=== PATIENT | male | born 1945 | race Caucasian/White ===

== ENCOUNTER 2020-02-23 05:22 | Outpatient (RCR) | payer MEDICARE, OTHER, SELFPAY ==
--- NOTE | 2020-02-09 16:20 | N.ONRAD NP_ITS ---
Radiation Oncology Consult Patient: Rusty Adams MR#: [id number] : 1945> Attending Physician: Dr. Jonathon Carrillo Date of Service: 02/09/2020 Rusty Adams was seen in consultation this afternoon for evaluation regarding potential salvage radiotherapy for the management of his recurrent prostate cancer. He initially presented with an elevated PSA level of 4.9 ng/mL in September 2016. A TRUS biopsy was performed by Rohit Lyman M.D. on May 17, 2017. Pathology identified an adenocarcinoma of the prostate with a Alejandro score of 4+5=9 involving 1 submitted biopsy core. A robotic assisted radical retropubic prostatectomy with pelvic lymph node sampling was completed on 2017. Pathology diagnosed a 58g prostate harboring an acinar adenocarcinoma with a [place] pattern of 4+3=7 involving 10% of the prostate gland. Perineural invasion was present. Surgical margins were uninvolved by invasive carcinoma. A total of 6 lymph nodes were harvested without metastatic disease. His PSA was 0.2 ng/mL postoperatively. A recent PSA obtained in December was 0.4 ng/mL. A fluciclovine F 18 (Axumin) scan was ordered on October 20, 2019 did not identify a potential sites of metastatic disease. I have been consulted for salvage radiotherapy. The patient's past medical history is significant atrial fibrillation, hypercholesterolemia, hypertension, obstructive sleep apnea, prostate cancer, and vitamin D deficiency. His previous surgical interventions include colonoscopy, lens replacement (OS), robotic assisted radical retropubic prostatectomy, and TRUS biopsy. I have reviewed the patient's medication profile which is available in the electronic medical record. He denied drug allergies. The patient's family history was unremarkable for genitourinary malignancies. The patient was unaccompanied to this consultation. He described occasional alcohol intake(daily beer) and disavowed a tobacco habit (prior smoking history; quit already 2 years ago). On review of systems, he did not report any constitutional complaints including fevers of unknown origin or unintentional weight loss. He decreased hearing in his left ear, but denied epistaxis, or dysphagia. He denied any cardiopulmonary symptoms such as angina, cough, or palpitations. On gastrointestinal review, he reported constipation but no nausea. Upon genitourinary review he denied dysuria, hematuria and incontinence. He did not report any musculoskeletal complaints including bone pain or muscle weakness. There were no neurological symptoms such as headaches, paresthesias, or seizures. On physical examination, the patient has an ECOG performance status of 0. He was 6 ft tall and weighed 215 lbs. The temperature was 98.4???F. The blood pressure was 127/78 mmHg. The pulse was 87 bpm and the respiratory rate of was 18. The head was normocephalic and atraumatic. Ophthalmoscopy identified bilateral red reflexes with sharp fundi visualized. Otoscopy revealed light reflexes upon tympanic membranes. Rhinoscopy exhibited non-inflamed turbinates. The oral cavity had moist mucous membranes and no oropharyngeal exudate was present. Poor dentition was noted. There was no cervical adenopathy or thyromegaly. Normal fremitus was noted with resonance to percussion elicited. Bronchovesicular breath sounds were auscultated in the posterior lung almaguer. Cardiac sounds were regular in rate and rhythm. A murmur was present. No JVD noted. The abdomen had active bowel sounds. No tenderness to palpation. No evidence of organomegaly.. No muscle weakness upon testing. No tenderness to deep palpation along the axial skeleton. Cranial nerves II through XII were intact. No sensory deficits. Gait was normal. In summary, the patient presented with an elevated PSA level of 4.9 ng/mL in September 2016. A TRUS biopsy was performed by Rohit Lyman M.D. on May 17, 2017. An adenocarcinoma of the prostate with a [place] score of 4+5=9 involving 1 submitted biopsy core was diagnosed. A robotic assisted radical retropubic prostatectomy with pelvic lymph node sampling was completed on July 18, 2017. Pathology diagnosed a 58g prostate harboring an acinar adenocarcinoma with a Alejandro pattern of 4+3=7 involving 10% of the prostate gland. `Perineural invasion was present. Surgical margins were uninvolved by invasive carcinoma. A total of 6 lymph nodes were harvested without metastatic disease. His PSA was 0.2 ng/mL postoperatively. A recent PSA obtained in December was 0.4 ng/mL. A fluciclovine F 18 (Axumin) scan that was ordered on October 20, 2019 did not identify a potential sites of metastatic disease. I have been consulted for salvage radiotherapy. I reviewed the recommendations as per National Comprehensive Cancer Network Guidelines in conjunction with androgen deprivation therapy for salvage radiotherapy. I also discussed the GETUG-AFU 16 that attested improvement in progression free survival to the patients randomized to radiotherapy in conjunction with hormonal suppression. I anticipate a 6 week course of radiotherapy with concurrent gonadotropin releasing hormone agonist pharmacotherapy which will be initiated following CT radiotherapy planning. Toxicities of pelvic radiotherapy were also canvassed. The patient has verbalized understanding would like proceed as recommended. Signed by: Dr. Jonathon Carrillo 02/09/2020 4:19:10 PM
--- NOTE | 2020-02-12 | CT_ITS ---
Radiation Therapy Planning CT images; total exam DLP: 999.15 mGy-cm MTDD
--- NOTE | 2020-02-23 12:20 | ONCRAD TMN_ITS ---
Radiation Oncology Weekly Treatment Management Patient: Angie Ojeda MR#: [id number] : 1945 Attending Physician: Jonathon Carrillo M.D. Date of Service: 02/23/2020 Referring Physician(s): Dr. Jorge Luis Barrett The patient is a 74 year old white male diagnosed with a biochemical failure following a radical prostatectomy in June 2017. His initial pathological stage was IIC (T2cN0 - PSA 4.9 ng/mL with a [place] Score of 4+3=7). His most recent PSA level was 0.4 ng/mL in December. The patient has received 2 Gy of a prescribed 66 Hamm to the prostate fossa with an intensity modulated radiotherapy plan utilizing a step and shoot treatment technique. He is prescribed concurrent hormonal therapy. Upon review of systems, he denied any lower urinary tract symptoms or gastrointestinal complaints related to radiotherapy. On physical examination, the patient weighed 215 lbs. His temperature was 97.2 ???F with a blood pressure of 166/77 mmHg. The pulse was 91 bpm and his respiratory rate was 16. No erythema within the treatment almaguer. Continue salvage prostatic fossa radiotherapy as planned. Signed by: Dr. Jonathon Carrillo 02/23/2020 12:19:31 PM
[2020-02-23] MEDS: lidocaine 1% INJ 20 mL INJECTION (12:35)
[2020-02-23] MEDS: goserelin acetate 10.8 mg Implant IM (12:45)
--- NOTE | 2020-02-23 13:42 | ONC CON_ITS ---
Dr. Liu New Patient Note Patient: Rusty Adams Unit #: [id number]: 1945 Dicatated By: Ozzie Liu M.D.Date of Visit: Feb 23, 2020 Onc MED New Patient/Consult Referring Physician: Dr. Jorge Luis Barrett M.D. Chief Complaint: Prostate cancer. History of Present Illness: This is a 74-year-old man with [place] score 7 (4+3) adenocarcinoma of the prostate, pathologic stage IIC (pT2, pN0) at prostatectomy in June 2017, and now with evidence of biochemical recurrence. He had presented with a rising PSA level. As of April 2017 it had increased to 7.0 ng/mL compared to 4.93 ng/mL in September 2016. His TRUS/prostate biopsy on 05/17/2019 showed prostatic adenocarcinoma with a maximum Alejandro score 7 (4+3) involving 4/12 cores. He then underwent laparoscopic robotic assisted radical prostatectomy with pelvic lymph node dissection on 07/18/2017. Pathology showed Alejandro score 4+3=7 prostatic adenocarcinoma which was confined to the prostate but involved both lobes. It was estimated to involve 10% of the prostate. There was no extraprostatic extension. There is no lymphovascular invasion identified, but there were multiple foci of perineural invasion noted. There was no involvement in 6 pelvic lymph nodes. As of 12/26/2018 his PSA level was detectable at 0.2 ng/mL and by 09/01/2019 and it had increased to 0.3 ng/mL. Staging F-18 Axumin PET imaging on 10/20/2019 was negative with no strong evidence for any Axumin avid tumor activity. As of 01/08/2020 there was further increase in the PSA to 0.4 ng/mL. He had radiation oncology consultation with Dr. Carrillo on 02/09/2020, and he has been recommended to undergo pelvic radiation with concurrent androgen deprivation therapy. He says he feels really good. He has good energy and has normal activity. ECOG score 0. Appetite also is good. His weight is stable. He does not have fever, night sweats, or hot flashes. He has no shortness of breath, cough, or chest pain. He has no GI complaints and reports having no difficulty with his bladder function. He has a little arthritis in his hands. He has no other joint or bone pain. He does not complain of headache or dizziness and he has no focal neurologic symptoms. Past Medical History: His medical history includes prostate cancer, atrial fibrillation, gastroesophageal reflux disease, hypercholesterolemia, hypertension, obstructive sleep apnea, and vitamin D deficiency. Past Surgical History: His surgical/procedural history includes bilateral cataract excisions, left eye lens replacement, radical prostatectomy in 2018, TRUSP / biopsy in 2018, and colonoscopy in 2015. Medications: Aspirin Adult 1 Tablet (of 325 mg) Oral daily, Calcium 1 Tablet (of 600 mg) Oral daily, Cardizem CD 1 Capsule (of 240 mg) Capsule SR 24 HR Oral daily, Fish Oil [place]-3 2 Capsule (of 2000 mg) Oral b.i.d., Indapamide 1 (2.5 mg) Tablet Oral at bedtime, Lisinopril (40 mg) Tablet Oral Take as Directed, Multiple Vitamin 1 Tablet Oral daily, Nasal Allergy 24 Hour Aerosol Nasal daily PRN, Pradaxa 1 Capsule (of 150 mg) Oral b.i.d., Protonix 1 (40 mg) Pack Oral daily, Rosuvastatin Calcium 1 (40 mg) Tablet Oral daily, Spironolactone 0.5 Tablet (of 25 mg) Oral daily Allergies: No Known Allergies. Social History: He is . He had smoked 1 pack of cigarettes daily from age 18 up until his early 30s. He otherwise just smokes a pipe occasionally. Alcohol use reported to be 2 beers daily. Family History: Father of heart failure at age 91. Mother of stroke at age 90. Two brothers are in good health. His maternal grandmother had stomach cancer. Review Of Symptoms: Constitutional - Appetite is good and weight is stable. No fever, night sweats, or hot flashes. ECOG score is, Eyes - No recent change in vision, ENMT - He has hearing loss. No tinnitus. No sinus congestion/drainage. No mouth sores. No sore throat or difficulty swallowing, Hematologic/Lymphatic - No abnormal bruising or bleeding, Respiratory - No shortness of breath. No cough. No pleuritic pain or hemoptysis, Cardiovascular - No angina pain. No palpitations, Gastrointestinal - No nausea or vomiting. No heartburn or acid reflux. No diarrhea or constipation. No blood in the stool or black stools, Genitourinary (M) - No dysuria or hematuria. No urinary frequency. No urgency or incontinence, Musculoskeletal - He has a little arthritis in his hands. No other joint or bone pain, Integumentary - No skin rash, Neurologic - No headache or dizziness. No numbness or tingling. No other focal neurologic symptoms, Psychiatric - No anxiety or depression. No insomnia. Vital Signs: Performed on Feb 23, 2020 12:07: 72.00 in, 215.0 lbs, 97.2 F, 91, 16, 166/77 mm(hg) (HIGH), 96 %, 0, Performed on Feb 23, 2020 12:07: 29.159 kg/m2 (HIGH), Performed on Feb 23, 2020 10:40: 2.20 sq.m, and Performed on Jun 13, 2017 10:17: . Physical Examination: Constitutional - He appears to be in good general health, Eyes - Sclerae nonicteric. Conjunctivae clear, ENMT - No lesions noted in the oral cavity, Neck - No mass or thyromegaly, Hematologic/Lymphatic - No cervical, clavicular, or axillary adenopathy, Respiratory - Lungs are clear with good air movement bilaterally, Cardiovascular - Heart rhythm is regular. There is a II/ systolic murmur. There is no gallop or rub noted, Abdomen - Soft and non-tender. Liver and spleen are not enlarged. There is no abdominal mass or ascites noted and there is no inguinal adenopathy, Back/Spine - No spine or CVA tenderness noted, Extremities - No edema. Dorsalis pedis pulses are palpable bilaterally, Integumentary - No rashes. No suspicious skin lesions noted, Neurologic - No focal neurologic deficits noted. Impression: 1. Patient with Alejandro score 7 (4+3) adenocarcinoma of the prostate, stage IIC, with biochemical recurrence following radical prostatectomy in June 2017. 2. He had negative staging F-18 Axumin PET/CT imaging on 10/20/2019. His other medical illnesses include: 3. Hypertension. 4. Hyperlipidemia. 5. Atrial fibrillation. 6. Obstructive sleep apnea. 7. GERD. Plan: With evidence of biochemical recurrence and with no evidence for any specific site of metastatic involvement, he has been recommended to undergo pelvic radiation. This will be administered concurrently with androgen deprivation therapy for 6 months. He will receive his initial dose of Zoladex 10.8 mg today, and he also will be given bicalutamide 50 mg daily for 14 days. I will see him again in 3 months. Signed By: Ozzie Liu M.D. <<Signature on File>>
== END 2020-02-23 23:59 | disposition home or self-care (01) ==
LOC: ONCMED 05:22
PROVIDERS: PCP Nurse Practitioner Family; Visit Provider Radiology Radiation Oncology
DX: Z51.0 Encounter for antineoplastic radiation therapy (principal); C61 Malignant neoplasm of prostate; I10 Essential (primary) hypertension; E78.5 Hyperlipidemia, unspecified; I48.91 Unspecified atrial fibrillation; G47.33 Obstructive sleep apnea (adult) (pediatric); K21.9 Gastro-esophageal reflux disease without esophagitis; Z79.818 Long term (current) use of other agents affecting estrogen receptors and estrogen levels; Z79.899 Other long term (current) drug therapy
CPT/HCPCS: 77300; 77301; 77334; 77338; 77385; 96372; 96402; 99214; 99215; J9202

== ENCOUNTER 2020-03-25 05:46 | Outpatient (RCR) | payer MEDICARE, OTHER, SELFPAY ==
--- NOTE | 2020-03-01 11:47 | ONCRAD TMN_ITS ---
Radiation Oncology Weekly Treatment Management Patient: Rusty Adams MR#: [id number] : 1945 Attending Physician: Jonathon Carrillo M.D. Date of Service: 03/01/2020 Referring Physician(s): Dr. Jorge Luis Barrett Rusty Adams is a 74 year old white male diagnosed with a biochemical failure following a radical prostatectomy in June 2017. His initial pathological stage was IIC (T2cN0 - PSA 4.9 ng/mL with a Alejandro Score of 4+3=7). His most recent PSA level was 0.4 ng/mL in December. The patient has received 12 Gy of a prescribed 66 Hamm to the prostate fossa with an intensity modulated radiotherapy plan utilizing a step and shoot treatment technique. He is prescribed concurrent hormonal therapy. Upon review of systems, he denied any lower urinary tract symptoms or gastrointestinal complaints related to radiotherapy. On physical examination, the patient weighed 215 lbs. His temperature was 97.2 ???F with a blood pressure of 166/77 mmHg. The pulse was 91 bpm and his respiratory rate was 16. No erythema within the treatment almaguer. Continue salvage prostatic fossa radiotherapy as planned. Signed by: Dr. Jonathon Carrillo 03/01/2020 11:45:37 AM
--- NOTE | 2020-03-08 11:37 | ONCRAD TMN_ITS ---
Radiation Oncology Weekly Treatment Management Patient: Rusty Adams MR#: [id number] : 1945 Attending Physician: Jonathon Carrillo M.D. Date of Service: 03/08/2020 Referring Physician(s): Dr. Jorge Luis Barrett The patient is a 74 year old white male diagnosed with a biochemical failure following a radical prostatectomy in June 2017. His initial pathological stage was IIC (T2cN0 - PSA 4.9 ng/mL with a [place] Score of 4+3=7). His most recent PSA level was 0.4 ng/mL in December. The patient has received 22 Gy of a prescribed 66 Hamm to the prostate fossa with an intensity modulated radiotherapy plan utilizing a step and shoot treatment technique. He is prescribed concurrent hormonal therapy. Upon review of systems, he denied any lower urinary tract symptoms or gastrointestinal complaints related to radiotherapy. On physical examination, the patient weighed 215 lbs. His temperature was 97.5 ???F with a blood pressure of 121/90 mmHg. The pulse was 72 bpm and his respiratory rate was 20. There was no erythema within the treatment almaguer. Continue salvage prostatic fossa radiotherapy as prescribed. Signed by: Dr. Jonathon Carrillo 03/08/2020 11:35:46 AM
--- NOTE | 2020-03-15 13:49 | ONCRAD TMN_ITS ---
Radiation Oncology Weekly Treatment Management Patient: Rusty Adams MR#: [id number] : 1945 Attending Physician: Jonathon Carrillo M.D. Date of Service: 03/15/2020 Referring Physician: Dr. Jorge Luis Barrett The patient is a 74 year old white male diagnosed with a biochemical failure following a radical prostatectomy in June 2017. His initial pathological stage was IIC (T2cN0 - PSA 4.9 ng/mL with a Alejandro Score of 4+3=7). His most recent PSA level was 0.4 ng/mL in December. The patient has received 32 Gy of a prescribed 66 Hamm to the prostate fossa with an intensity modulated radiotherapy plan utilizing a step and shoot treatment technique. He is prescribed concurrent hormonal therapy. Upon review of systems, he denied any lower urinary tract symptoms or gastrointestinal complaints related to radiotherapy. On physical examination, the patient weighed 217 lbs. His temperature was 97.58 ???F with a blood pressure of 150/74 mmHg. The pulse was 97 bpm and his respiratory rate was 20. There was no erythema within the treatment almaguer. Continue salvage prostatic fossa radiotherapy as planned. Signed by: Dr. Jonathon Carrillo 03/15/2020 1:47:56 PM
--- NOTE | 2020-03-22 12:04 | ONCRAD TMN_ITS ---
Radiation Oncology Weekly Treatment Management Patient: Rusty Adams MR#: [id number] : 1945 Attending Physician: Jonathon Carrillo M.D. Date of Service: 03/22/2020 Referring Physician: Dr. Jorge Luis Barrett The patient is a 74 year old white male diagnosed with a biochemical failure following a radical prostatectomy in June 2017. His initial pathological stage was IIC (T2cN0 - PSA 4.9 ng/mL with a Alejandro Score of 4+3=7). His most recent PSA level was 0.4 ng/mL in December. The patient has received 38 Gy of a prescribed 66 Hamm to the prostate fossa with an intensity modulated radiotherapy plan utilizing a step and shoot treatment technique. He is prescribed concurrent hormonal therapy. Upon review of systems, he denied any lower urinary tract symptoms or gastrointestinal complaints related to radiotherapy. On physical examination, the patient weighed 216 lbs. His temperature was 97.2 ???F with a blood pressure of 154/92 mmHg. The pulse was 92 bpm and his respiratory rate was 16. There was no erythema within the treatment almaguer. Continue salvage prostatic fossa radiotherapy as prescribed. Signed by: Dr. Jonathon Carrillo 03/22/2020 12:02:57 PM
== END 2020-03-25 23:59 | disposition home or self-care (01) ==
LOC: ONCMED 05:46
PROVIDERS: PCP Nurse Practitioner Family; Visit Provider Radiology Radiation Oncology
DX: Z51.0 Encounter for antineoplastic radiation therapy (principal); C61 Malignant neoplasm of prostate; Z90.79 Acquired absence of other genital organ(s)
CPT/HCPCS: 77336; 77385

== ENCOUNTER 2020-04-12 05:38 | Outpatient (RCR) | payer MEDICARE, OTHER, SELFPAY ==
--- NOTE | 2020-03-29 11:44 | ONCRAD TMN_ITS ---
Radiation Oncology Treatment Management Note Patient Name: Rusty Adams Date of : 1945 Date of Service: 03/29/2020 Attending Physician: Jonathon Carrillo M.D. Rusty Adams is a 74 year old white male diagnosed with a biochemical failure following a radical prostatectomy in June 2017. His initial pathological stage was IIC (T2cN0 - PSA 4.9 ng/mL with a [place] Score of 4+3=7). His most recent PSA level was 0.4 ng/mL in December. The patient has received 46 Gy of a prescribed 66 Hamm to the prostate fossa with an intensity modulated radiotherapy plan utilizing a step and shoot treatment technique. He is prescribed concurrent hormonal therapy. Upon review of systems, he denied any lower urinary tract symptoms or gastrointestinal complaints related to radiotherapy. On physical examination, the patient weighed 215 lbs. His temperature was 97.3 ???F with a blood pressure of 137/86 mmHg. The pulse was 92 bpm and his respiratory rate was 20. There was no erythema within the treatment almaguer. Continue salvage prostatic fossa radiotherapy as planned. Signed by: Dr. Jonathon Crarillo 03/29/2020 11:42:47 AM
--- NOTE | 2020-04-05 11:28 | ONCRAD TMN_ITS ---
Radiation Oncology Treatment Management Note Patient Name: Rusty Adams Date of : 1945 Date of Service: 04/05/2020 Attending Physician: Jonathon Carrillo M.D. Rusty Adams is a 74 year old white male diagnosed with a biochemical failure following a radical prostatectomy in June 2017. His initial pathological stage was IIC (T2cN0 - PSA 4.9 ng/mL with a Alejandro Score of 4+3=7). His most recent PSA level was 0.4 ng/mL in December. The patient has received 56 Gy of a prescribed 66 Hamm to the prostate fossa with an intensity modulated radiotherapy plan utilizing a step and shoot treatment technique. He is prescribed concurrent hormonal therapy. Upon review of systems, he denied any lower urinary tract symptoms or gastrointestinal complaints related to radiotherapy. On physical examination, the patient weighed 215 lbs. His temperature was 97 ???F with a blood pressure of 139/88 mmHg. The pulse was 92 bpm and his respiratory rate was 18. There was no erythema within the treatment almaguer. Continue salvage prostatic fossa radiotherapy as prescribed. Signed by: Dr. Jonathon Carrillo 04/05/2020 11:27:01 AM
== END 2020-04-25 23:59 | disposition home or self-care (01) ==
LOC: ONCMED 05:38
PROVIDERS: PCP Nurse Practitioner Family; Visit Provider Radiology Radiation Oncology
DX: Z51.0 Encounter for antineoplastic radiation therapy (principal); C61 Malignant neoplasm of prostate
CPT/HCPCS: 77336; 77385

== ENCOUNTER 2020-05-24 10:52 | Outpatient (CLI) | payer MEDICARE, OTHER, SELFPAY ==
[2020-05-24 11:28] LABS: Basophils % 0.5 %; Eosinophils # 0.1 10^3/uL (0.0-0.8); Eosinophils % 1.2 %; Hematocrit 40.8 % (42.0-52.0); Hemoglobin 14.2 g/dL (11.7-16.6); Lymphocytes # 0.7 10^3/uL (0.8-4.8); Mean Corpuscular HGB Conc 34.8 g/dL (30.0-36.0); Mean Corpuscular Hemoglobin 35.7 pg (28.0-34.0); Mean Corpuscular Volume 102.5 fL (80-94); Mean Platelet Volume 10.3 fL (7.4-10.4); Monocytes # 0.5 10^3/uL (0.2-0.9); Monocytes % 8.1 %; Neutrophils # 4.54 10^3/uL (1.8-7.7); Nucleated Red Blood Cells % 0 %; Platelet Count 214 10^3/cmm (130-400); Red Blood Count 3.98 10^6/uL (4.1-5.3); Red Cell Distribution Width 12.8 % (12.1-15.1); White Blood Count 5.8 10^3/uL (4.0-10.0)
[2020-05-24 11:54] LABS: Alanine Aminotransferase 26 U/L (0-41); Albumin Level 4.5 g/dL (3.5-5.2); Alkaline Phosphatase 54 IU/L (40-130); Aspartate Amino Transferase 25 U/L (0-40); Blood Urea Nitrogen 8 mg/dL (8-23); Calcium 9.6 mg/dL (8.5-10.5); Carbon Dioxide 27 mmol/L (22-29); Chloride 100 mmol/L (98-107); Globulin 2.4 g/dL (1.3-4.6); Glucose 103 mg/dL (65-115); Osmolality Calculated 283 mOsm/kg (285-295); Sodium 137 mmol/L (136-145); Total Bilirubin 0.5 mg/dL (0.15-1.2); Total Protein 6.9 g/dL (6.6-8.7)
[2020-05-24 12:01] LABS: Prostate Specific Antigen 0.006 ng/mL (0-4)
[2020-05-24] MEDS: lidocaine 1% INJ 20 mL INJECTION (12:50)
[2020-05-24] MEDS: goserelin acetate 10.8 mg Implant IM (13:10)
[2020-05-24 14:17] LABS: Testosterone Total 2.5 ng/dL (193-740)
--- NOTE | 2020-05-25 08:10 | ONC FU_ITS ---
Dr. Liu Patient Follow-Up Note Patient: Rusty Adams Unit #: [id number]: 1945 Dicatated By: Ozzie Liu M.D.Date of Visit:May 24, 2020 Onc Med Follow-up/Prog Note Chief Complaint: Prostate cancer. History of Present Illness: This is a 74-year-old man with [place] score 7 (4+3) adenocarcinoma of the prostate, pathologic stage IIC (pT2, pN0) at prostatectomy in June 2017. He had subsequent evidence of biochemical recurrence. He had presented with a rising PSA level. As of April 2017 it had increased to 7.0 ng/mL compared to 4.93 ng/mL in September 2016. His TRUS/prostate biopsy on 05/17/2019 showed prostatic adenocarcinoma with a maximum Alejandro score 7 (4+3) involving 4/12 cores. He then underwent laparoscopic robotic assisted radical prostatectomy with pelvic lymph node dissection on 07/18/2017. Pathology showed Alejandro score 4+3=7 prostatic adenocarcinoma which was confined to the prostate but involved both lobes. It was estimated to involve 10% of the prostate. There was no extraprostatic extension. There is no lymphovascular invasion identified, but there were multiple foci of perineural invasion noted. There was no involvement in 6 pelvic lymph nodes. As of 12/26/2018 his PSA level was detectable at 0.2 ng/mL and by 09/01/2019 and it had increased to 0.3 ng/mL. Staging F-18 Axumin PET imaging on 10/20/2019 was negative with no strong evidence for any Axumin avid tumor activity. As of 01/08/2020 there was further increase in the PSA to 0.4 ng/mL. He had radiation oncology consultation with Dr. Carrillo on 02/09/2020, and he was recommended to undergo pelvic radiation with concurrent androgen deprivation therapy. I had seen him initially on 02/23/2020, at that point he began androgen deprivation therapy with Zoladex 10.8 mg together with bicalutamide 50 mg daily for 14 days. He then began radiation. He completed treatment on 04/12/2020 to a total dose of 6600 cGy administered in 33 fractions. He tolerated the radiation well. He is seen for a follow-up visit. He has been feeling good generally. He has good energy and activity tolerance. ECOG score is 0. His appetite is good. He has no fever, night sweats, or hot flashes. He has no shortness of breath, cough, or chest pain. He has no GI complaints, and he also has no complaints with bladder function. He has had virtually no side effects with the radiation. He has some arthritis pain in his left thumb, mainly with rainy weather. He has no other joint or bone pain. He does not complain of headache or dizziness. He has no focal neurologic symptoms. Medications: Aspirin Adult 1 Tablet (of 325 mg) Oral daily, Calcium 1 Tablet (of 600 mg) Oral daily, Cardizem CD 1 Capsule (of 240 mg) Capsule SR 24 HR Oral daily, Fish Oil [place]-3 2 Capsule (of 2000 mg) Oral b.i.d., Indapamide 1 (2.5 mg) Tablet Oral at bedtime, Lisinopril (40 mg) Tablet Oral Take as Directed, Multiple Vitamin 1 Tablet Oral daily, Nasal Allergy 24 Hour Aerosol Nasal daily PRN, Pradaxa 1 Capsule (of 150 mg) Oral b.i.d., Protonix 1 (40 mg) Pack Oral daily, Rosuvastatin Calcium 1 (40 mg) Tablet Oral daily, Spironolactone 0.5 Tablet (of 25 mg) Oral daily Allergies: No Known Allergies. Vital Signs: Performed on May 24, 2020 12:27 Height - 72.00 in Weight - 220 lbs (HIGH) BSA - 2.22 sq.m BMI - 29.84 Temperature - 96 F (LOW) Pulse - 105 /min (HIGH) Respiration - 18 /min BP - 138/91 mm(hg) O2 Sat - 96 % Pain - 0 Fatigue - 0 Physical Examination: Constitutional - He looks good generally, Eyes - Sclerae nonicteric. Conjunctivae clear, ENMT - No lesions noted in the oral cavity, Hematologic/Lymphatic - No cervical, clavicular, or axillary adenopathy, Respiratory - Lungs are clear with good air movement bilaterally, Cardiovascular - Heart rhythm is regular. There is a II/ systolic murmur. There is no gallop or rub noted, Abdomen - Soft. Liver and spleen are not enlarged. There is no abdominal mass or ascites noted and there is no inguinal adenopathy, Extremities - No edema, Neurologic - No focal neurologic deficits noted. Lab/Imaging: Test performed on May 24, 2020 11:00 Sodium 137 mmol/L Testosterone, Total 2.5 ng/dL Potassium 4.0 mmol/L Chloride 100 mmol/L CO2 27 mmol/L Anion Gap 14.0 BUN 8 mg/dL Creatinine 1.0 mg/dL Cr Clearance (Est) 91.48 mL/min Glucose 103 mg/dL Osmolality - Calculated 283 mOsm/kg Calcium 9.6 mg/dL Protein, Total 6.9 g/dL Albumin 4.5 g/dL Globulin 2.4 g/dL Bilirubin, Total 0.5 mg/dL ALT (SGPT) 26 U/L AST (SGOT) 25 U/L Alkaline Phosphatase 54 IU/L WBC 5.8 10 3/uL RBC 3.98 10 6/uL HGB 14.2 g/dL HCT 40.8 % MCV 102.5 fL MCH 35.7 pg MCHC 34.8 g/dL RDW 12.8 % Platelet Count 214 10 3/cmm MPV 10.3 fL Neutrophils 4.54 10 3/uL Lymphocytes 0.7 10 3/uL Monocytes 0.5 10 3/uL Eosinophils 0.1 10 3/uL Basophils 0.0 10 3/uL Neutrophil % 78.0 % Lymphocyte % 12.0 % Monocyte % 8.1 % Eosinophil % 1.2 % Basophils % 0.5 % NRBC % 0 % PSA 0.006 ng/mL Problem List: 1. [place] score 7 (4+3) adenocarcinoma of the prostate, stage IIC, with biochemical recurrence following radical prostatectomy in June 2017. 2. He had negative staging F-18 Axumin PET/CT imaging on 10/20/2019. 3. Hypertension. 4. Hyperlipidemia. 5. Atrial fibrillation. 6. Obstructive sleep apnea. 7. GERD. Problems Addressed with this Encounter and Plan: Patient with [place] score 7 (4+3) adenocarcinoma of the prostate, stage IIC, with biochemical recurrence following radical prostatectomy in June 2017. He had negative staging F-18 [facility] PET/CT imaging on 10/20/2019. On 02/23/2020, at that point he began androgen deprivation therapy with Zoladex 10.8 mg together with bicalutamide 50 mg daily for 14 days. He then began radiation. He completed treatment on 04/12/2020 to a total dose of 6600 cGy administered in 33 fractions. He tolerated the radiation well. He has had a very good response by PSA level. He will continue now with his second dose of Zoladex, 10.8 mg by subcutaneous injection. I will verify this with Dr. Carrillo, and I am assuming this will complete his treatment. He is going to be continuing follow-up with Dr. Lyman. I will see him here again only as needed. Signed By: Ozzie Liu M.D. <<Signature on File>>
== END 2020-05-24 10:53 | disposition home or self-care (01) ==
PROVIDERS: PCP Nurse Practitioner Family; Visit Provider Internal Medicine Medical Oncology
DX: C61 Malignant neoplasm of prostate (principal); Z90.79 Acquired absence of other genital organ(s); Z79.818 Long term (current) use of other agents affecting estrogen receptors and estrogen levels; Z79.899 Other long term (current) drug therapy
CPT/HCPCS: 80053; 84153; 84403; 85025; 96372; 96402; 99214; J9202

== ENCOUNTER 2020-06-04 06:03 | Outpatient (CLI) | payer MEDICARE, OTHER, SELFPAY ==
--- NOTE | 2020-06-04 10:19 | ONCRAD EPV_ITS ---
Radiation Oncology Follow-Up Note Patient Name: Rusty Adams Date of : 1945 Date of Service: 06/04/2020 Attending Physician: Jonathon Carrillo M.D. Rusty Adams returned to my office this morning for a routinely scheduled follow-up appointment. He completed prostatic fossa radiotherapy in March for the management of his pathological stage IIC (T2cN0) adenocarcinoma of the prostate with a [place] score of???7 (4+3). His pretreatment PSA was 0.4 ng/mL. ??? Radiotherapy was administered between the dates of February 23, 2020 through April 12, 2020. A prescribed dose of 66 Gy was delivered in 33 fractions encompassing 50 elapsed days. On review of systems, the patient denied any constitutional complaints including unintentional weight loss or fevers of unknown origin. On genitourinary review, he denied dysuria, hematuria, and incontinence. There were no musculoskeletal complaints such as bone pain or muscle weakness. On physical examination, the patient weighed 220 pounds. The temperature is 97???F. His blood pressure was 133/91 mmHg. The pulse was 92 bpm and his respiratory rate was 18 breaths per minute. Genitourinary exam was deferred. In summary, Mr. Adams returned for a routine post-radiotherapy follow-up. A PSA and total testosterone obtained approximately 1 week ago were 0.006 ng/mL and 2.5 ng/dL. He has also received his second dose of Zoladex. He will continue follow with his urologist. Signed by: Dr. Jonathon Carrillo 06/04/2020 10:18:41 AM
== END 2020-06-04 06:04 | disposition home or self-care (01) ==
LOC: ONCMED 06:05
PROVIDERS: PCP Nurse Practitioner Family; Visit Provider Radiology Radiation Oncology
DX: C61 Malignant neoplasm of prostate (principal); Z92.3 Personal history of irradiation
CPT/HCPCS: 99024

== ENCOUNTER → 2020-09-22 09:54 | Outpatient (BNVA) | payer MEDICARE, OTHER, SELFPAY | PROVIDERS: PCP Nurse Practitioner Family; Visit Provider Specialist | DX: S82.401A Unspecified fracture of shaft of right fibula, initial encounter for closed fracture (principal); X58.XXXA Exposure to other specified factors, initial encounter; Z46.89 Encounter for fitting and adjustment of other specified devices; S82.61XD Displaced fracture of lateral malleolus of right fibula, subsequent encounter for closed fracture with routine healing; X58.XXXD Exposure to other specified factors, subsequent encounter | CPT/HCPCS: 73610; 97760; L1902 ==

== ENCOUNTER 2020-09-22 14:40 | Outpatient (CLI) | payer MEDICARE, OTHER, SELFPAY | END 2020-09-22 14:41 | disposition home or self-care (01) | LOC: SPT 14:41 | PROVIDERS: PCP Nurse Practitioner Family; Visit Provider Specialist | DX: Z46.89 Encounter for fitting and adjustment of other specified devices (principal); S82.61XD Displaced fracture of lateral malleolus of right fibula, subsequent encounter for closed fracture with routine healing; X58.XXXD Exposure to other specified factors, subsequent encounter | CPT/HCPCS: 97760; L1902 ==

== ENCOUNTER → 2020-09-29 10:35 | Outpatient (BNVA) | payer MEDICARE, OTHER, SELFPAY | PROVIDERS: PCP Nurse Practitioner Family; Visit Provider Specialist | DX: S82.61XA Displaced fracture of lateral malleolus of right fibula, initial encounter for closed fracture (principal); X58.XXXA Exposure to other specified factors, initial encounter | CPT/HCPCS: 73610 ==

== ENCOUNTER → 2020-10-06 09:55 | Outpatient (BNVA) | payer MEDICARE, OTHER, SELFPAY | PROVIDERS: PCP Nurse Practitioner Family; Visit Provider Specialist | DX: S82.61XA Displaced fracture of lateral malleolus of right fibula, initial encounter for closed fracture (principal); X58.XXXA Exposure to other specified factors, initial encounter | CPT/HCPCS: 73610 ==

== ENCOUNTER → 2020-11-03 10:16 | Outpatient (BNVA) | payer MEDICARE, OTHER, SELFPAY | PROVIDERS: PCP Nurse Practitioner Family; Visit Provider Specialist | DX: S82.61XA Displaced fracture of lateral malleolus of right fibula, initial encounter for closed fracture (principal); X58.XXXA Exposure to other specified factors, initial encounter | CPT/HCPCS: 73610 ==